=== PATIENT | female | born 1940 | race Caucasian/White ===

== ENCOUNTER 2025-03-25 06:32 | Day surgery (SDC) | payer MEDICARE, BC, SELFPAY | END 2025-03-25 08:37 | disposition home or self-care (01) | LOC: GI 06:32 | PROVIDERS: ATTENDING PHYSICIAN Surgery | DX: Z12.11 Encounter for screening for malignant neoplasm of colon (principal); Z85.048 Personal history of other malignant neoplasm of rectum, rectosigmoid junction, and anus; K57.30 Diverticulosis of large intestine without perforation or abscess without bleeding | CPT/HCPCS: G0105 ==

== ENCOUNTER 2025-11-16 08:37 | Emergency (ER) | payer MEDICARE, BC, SELFPAY ==
[2025-11-16 08:45] VITALS: BP 187/95
--- NOTE | 2025-11-16 09:38 | ED.GENMED ---
History of Present Illness
General
Chief Complaint: Fall
Source: patient and family (son)
Exam Limitations: none
Time Seen by Provider: 11/16/25 09:28
Nursing documentation reviewed up to this point in time: agreed with
History of Present Illness
History of Present Illness:
85-year-old female with past medical history as noted presents for evaluation after a fall. Patient says that on she was walking up the steps and she lost her footing and fell down and landed on her left side. She says she did not
hit her head and did not lose consciousness. She says she had some minimal left-sided rib/abdominal pain after the fall but did not think much of it. She did not disclose the fall to her family and did not immediately seek care (she says she was
trying to make it through the holidays). She says that last night she noticed the pain was getting worse particular with breathing and movement and she told her family about the fall and came to the ER for assessment. Pain is located in the left
lower ribs anterior lateral and left upper abdomen. She has not had any headache, neck pain or back pain since the fall and denies any injuries to her extremities. She is on baby aspirin but no other blood thinners.
Review of Systems
Review of Systems
All Other Systems: ROS reviewed and negative except as documented in HPI and ROS
Respiratory: Denies trouble breathing
Cardiac: Reports chest pain (Left lower rib pain)
ABD/GI: Reports abdominal pain (Left upper abdominal pain); Denies nausea or vomiting
: Reports flank pain
Musculoskeletal: Denies neck pain or back pain
Neurological: Denies dizzy, headache, weakness or numbness
Phy Exam
Physical Exam
Physical Exam:
General: Awake, alert, oriented x3; no acute distress
Head: Normocephalic, atraumatic
Eyes: Conjunctiva normal
Throat: Airway intact, handling secretions
Neck: Trachea midline, no cervical spine tenderness
Back: No signs of trauma to the back or flank and no tenderness in the thoracic or lumbar spine
Lungs: Clear to auscultation bilaterally, no wheezing, rales, rhonchi
Heart: Regular rate and rhythm, no murmurs, gallops, or rubs; patient does have some tenderness of the lower left ribs anterior roughly midclavicular line but no ecchymosis
Abd: Soft, non distended, tender to palpation in the left upper quadrant with no bruising
Neuro: Grossly intact and ambulatory
Skin: Warm and dry
Extremities: Atraumatic, moving all extremities without apparent pain, ambulatory
Scores
Heart Failure Risk
Heart Failure Risk Score: Not Applicable
Heart Score for Chest Pain Patients
STEMI patient?: Not applicable
Withdrawal Assessment of Alcohol
Withdrawal Assessment Completed?: Not applicable
Course
Orders/Labs/Results
Orders:
Orders
11/16/25 09:37
CT Chest/abd/pel W Iv Cont Urgent
Comment:
Reason For Exam: left flank and upper abd pain, TTP s/p fall
11/16/25 10:00
Type+Screen Urgent
Complete Blood Count/With Diff Urgent
Comprehensive Metabolic Panel Urgent
Abnormal Lab Results
11/16/25
10:00
MCH 32.9 H pg
(27.0-31.0)
Glucose 100 H mg/dl
(70-99)
11/16/25 10:00
11/16/25 10:00
Vital Signs
Initial and Last Documented VS:
Initial Vital Signs
Temp Pulse Resp BP Pulse Ox
36.8 C 85 20 187/95 96
11/16/25 08:45 11/16/25 08:45 11/16/25 08:45 11/16/25 08:45 11/16/25 08:45
Last Documented Vital Signs
Temp Pulse Resp BP Pulse Ox
36.8 C 85 20 187/95 96
11/16/25 08:45 11/16/25 08:45 11/16/25 08:45 11/16/25 08:45 11/16/25 09:43
MDM/Problems Addressed
Differential Diagnosis Includes:
Left lower rib/upper abdominal pain: Rib fracture, bruised ribs, splenic laceration, pneumothorax, hemothorax, hematoma, renal laceration
MDM/Problems Addressed:
85-year-old female presents for evaluation after a fall few days ago complaining of worsening pain in the left lower ribs/upper abdomen. No head strike or any other injuries. Not on blood thinners. Hypertensive but otherwise normal vitals.
Physical exam as noted. Will plan to check basic labs and sent for a CT of the chest/abdomen/pelvis to evaluate for acute posttraumatic pathology specifically splenic laceration, significant rib fractures or lung injury. Reassess at the above.
Labs reviewed and no clinically significant abnormalities. Awaiting imaging.
CT chest/abdomen/pelvis shows no acute injury in the chest/abdomen/pelvis. Incidental findings essentially stable. Overall suspect bruised ribs. Patient has only been taking a single Tylenol in the morning and an extra baby aspirin at night to
control her pain. We talked about increasing dosing of Tylenol and adding Lidoderm and Aleve as needed. Stable for discharge at this point. Patient and son at bedside they feel comfortable with this plan. All questions answered.
Acute Exacerbation and/or Progression of Chronic Illness:
Acutely hypertensive likely pain related�no emergent antihypertensives indicated at this point
Acute Exacerbation and/or Progression of Chronic Illness: HTN
*Radiology
Radiology exam reviewed: radiology read reviewed
*Pulse Oximetry
SaO2: 96
Oxygen Mode of Delivery: Room air
Patient hypoxic: no (96%)
*Critical Care Note
Total Time (30-74mins, 75-104mins- exclusive of procedures): Not Applicable
Data Reviewed
Source: patient and family (son)
ED Attending Note
-
Portions of this chart may have been created with voice recognition software.� Occasional wrong word or��sound alike� substitutions may have occurred due to the inherent limitations of voice recognition software.
Discharge Plan
Departure
Patient Disposition: Home (Routine Discharge)
Date of Disposition: 11/16/25
Time of Disposition: 11:56
Patient with high blood pressure during this ER visit?: Yes
Discharge Problem:
Bruised ribs
Instructions: Rib fracture or bruised rib - ED (DC)
Prescriptions:
New
lidocaine [Lidoderm] 5 % adhesive patch,medicated
1 patch topical DAILY Qty: 15 0RF
No Action
acetaminophen [Tylenol Extra Strength] 500 MG tablet
500 mg PO DAILY
ascorbic acid (vitamin C) [Vitamin C] 250 mg Tablet
250 mg PO DAILY
omeprazole 20 mg Capsule,Delayed Release(Dr/Ec)
20 mg PO DAILY PRN (Reason: Acid reflux)
aspirin 81 mg Tablet,Chewable
81 mg PO DAILY
vitamin E 268 mg (400 unit) Capsule
268 mg PO DAILY
cholecalciferol (vitamin D3) [Vitamin D3] 25 mcg (1,000 unit) Capsule
25 mcg PO DAILY
Referrals:
Flako Cisneros MD [Family Provider, [facility]] - Follow up in 1 week
Activity Restrictions/Additional Instructions:
Thank you for visiting the Emergency Department at [facility].
1. Please schedule a follow up appointment as directed. Call first thing tomorrow morning to make an appointment.
2. If indicated, please take your medications as instructed and indicated on discharge paperwork.
3. If any of your symptoms do not improve, or persist, or become more severe within 6-12 hours, please return to the emergency department for further care.
4. Please return to the emergency department if you develop a headache, neck pain/stiffness, fever greater than 100.4F, chest pain, shortness of breath, persistent nausea, vomiting, slurred speech, difficulty walking, numbness/tingling, weakness,
signs of infection or any other symptoms that are worrisome to you.
Please call [phone] if you have any questions.
Interventions
Interventions:
*General Assessment Last Done: 11/16/25 08:47
*Neglect/Abuse Screening Last Done: 11/16/25 08:47
[facility] Fall Risk Assessment Tool Last Done: 11/16/25 10:07
*Risk Screen - Suicide (C-SSRS) Last Done: 11/16/25 08:47
ED-Musculoskeletal Assessment Last Done: 11/16/25 10:07
ED- Neurological Assessment Last Done: 11/16/25 10:07
ED-Skin Assessment Last Done: 11/16/25 10:07
Discharge Date and Time
Print Language: ROMANSH
[2025-11-16 10:12] LABS: Hematocrit 41.2 % (37.0-47.0); Hemoglobin 13.9 g/dL (12.0-16.0); Mean Corp Hgb Conc. 33.7 g/dL (33.0-37.0); Mean Corpuscular Volume 97.6 fL (81.0-99.0); Nucleated Red Blood Cells % 0 %; Platelet Count 192 10^3/uL (130-400); Red Cell Dist. Width 13.4 % (11.5-14.5)
[2025-11-16 10:30] LABS: ALT (SGPT) 16 U/L (0-35); AST (SGOT) 22 U/L (14-36); Albumin 4.1 g/dl (3.5-5.0); Alkaline Phosphatase 89 U/L (38-126); Blood Urea Nitrogen 13 mg/dl (7-17); Calcium 9.4 mg/dl (8.4-10.2); Carbon Dioxide 27 mmol/L (22-30); Chloride 105 mmol/L (98-107); Glucose 100 mg/dl (70-99); Potassium 3.7 mmol/L (3.5-5.1); Sodium 138 mmol/L (135-145); Total Protein 6.6 g/dl (6.3-8.2); eGFR > 60.00
== END 2025-11-16 12:22 | disposition home or self-care (01) ==
LOC: EMR 08:37
PROVIDERS: EMERGENCY PHYSICIAN Emergency Medicine; FAMILY PHYSICIAN Family Medicine
DX: S20.20XA Contusion of thorax, unspecified, initial encounter (principal); W10.8XXA Fall (on) (from) other stairs and steps, initial encounter; R10.9 Unspecified abdominal pain; Z79.82 Long term (current) use of aspirin
CPT/HCPCS: 99284; 71260; 74177; 80053; 85025; 86850; 86900; 86901; Q9967